=== PATIENT | male | born 1950 | race Caucasian/White ===

== ENCOUNTER 2022-04-27 18:42 | Inpatient (IN) ==
[2022-04-27 19:33] LABS: Basophils % 0.4 %; Eosinophils # 0.3 K/mcL (0.0-0.6); Eosinophils % 2.6 %; Hematocrit 45.9 % (37.5-50.1); Hemoglobin 15.3 g/dL (12.9-16.9); Immature Granulocytes % 0.3 % (0-4); Lymphocytes # 2.9 K/mcL (0.6-4.6); Lymphocytes % 28.6 %; Mean Corpuscular HGB Conc 33.3 g/dL (31.6-35.5); Mean Corpuscular Hemoglobin 31.2 pg (28.0-33.3); Mean Corpuscular Volume 93.5 fL (83.0-100.0); Mean Platelet Volume 9.5 fL (9.4-12.4); Monocytes # 0.9 K/mcL (0.0-1.3); Monocytes % 8.7 %; Platelet Count 285 K/mcL (140-400); Red Blood Count 4.91 M/mcL (4.19-5.50); Red Cell Distribution Width 12.3 % (11.5-14.5); Segmented Neutrophils % 59.4 %
[2022-04-27] MEDS ORDERED: Aspirin 325 MG TABLET PO ONE (20:04)
[2022-04-27] MEDS ORDERED: Nitroglycerin 1 INCH/GM PACKET TP ONE (20:08)
[2022-04-27 20:18] LABS: Troponin I 0.13 ng/mL (< 0.04)
[2022-04-27] MEDS ORDERED: Ondansetron 4 MG/2 ML VIAL IVP PRN (21:07)
[2022-04-27] MEDS ORDERED: Naloxone 0.4 MG/ML INJ IVP PRN (21:07)
[2022-04-27] MEDS ORDERED: Melatonin 3 MG TABLET PO PRN (21:07)
[2022-04-27 21:10] LABS: Calcium 9.4 mg/dL (8.6-10.3); Potassium 4.4 mEq/L (3.5-5.1)
[2022-04-27] MEDS ORDERED: Perflutren Lipid Microsphere 1.3 ML in 0.9 % Sodium Chloride 8.7 ML IVP PRN (21:15)
[2022-04-27] MEDS ORDERED: Dextrose Gel 15 GM/37.5 ML TUBE PO PRN ×2 (21:15)
[2022-04-27] MEDS ORDERED: D5% in Water 1,000 ML IVC PRN (21:15)
[2022-04-27] MEDS ORDERED: *HR* Dextrose 50 % in Water (Syg) 50 ML SYRINGE IVP PRN (21:15)
[2022-04-27] MEDS ORDERED: Baclofen 10 MG TABLET PO ONE (21:16)
[2022-04-27] MEDS ORDERED: *HR* Heparin 5,000 UNIT/ML VIAL IVP PRN (21:20)
[2022-04-27] MEDS ORDERED: *HR* Heparin 5,000 UNIT/ML VIAL IVP ONE (21:20)
[2022-04-28] MEDS: Mirtazapine 15 MG TABLET PO SCH ×2 (00:11→21:29)
[2022-04-28] MEDS: Acetaminophen 325 MG TABLET PO PRN ×2 (00:12→05:42)
[2022-04-28] MEDS: Heparin 25,000UNIT/250ML 1/2NS 25,000 UNIT/250 ML IV.SOLN IVC SCH (01:00)
[2022-04-28 01:03] LABS: Basophils % 0.4 %; Eosinophils # 0.3 K/mcL (0.0-0.6); Eosinophils % 2.7 %; Hematocrit 42.1 % (37.5-50.1); Immature Granulocytes % 0.2 % (0-4); Lymphocytes # 3.4 K/mcL (0.6-4.6); Lymphocytes % 33.3 %; Mean Corpuscular HGB Conc 33.3 g/dL (31.6-35.5); Mean Corpuscular Hemoglobin 31.5 pg (28.0-33.3); Mean Corpuscular Volume 94.6 fL (83.0-100.0); Mean Platelet Volume 9.4 fL (9.4-12.4); Monocytes # 1.1 K/mcL (0.0-1.3); Monocytes % 10.6 %; Neutrophils # 5.5 K/mcL (1.6-8.9); Platelet Count 242 K/mcL (140-400); Red Blood Count 4.45 M/mcL (4.19-5.50); Red Cell Distribution Width 12.3 % (11.5-14.5); Segmented Neutrophils % 52.8 %; White Blood Count 10.3 K/mcL (4.3-11.1)
[2022-04-28 01:11] LABS: Heparin anti-factor XA UFH < 0.04 IU/mL (0.30-0.70); Prothrombin Time 11.6 Seconds (9.4-12.1)
[2022-04-28 01:13] LABS: Activated Partial Thrombo Time 31.8 Seconds (26.0-36.0)
[2022-04-28 01:23] LABS: Albumin 3.7 g/dL (3.5-5.7); Albumin/Globulin Ratio 1.3 (1.1-2.2); Bilirubin,Total 0.3 mg/dL (0.3-1.0); Globulin 2.9 g/dL (2.4-3.5); Phosphorous 3.7 mg/dL (2.7-4.5); Potassium 3.7 mEq/L (3.5-5.1); Total Protein 6.6 g/dL (6.4-8.9)
[2022-04-28 01:39] LABS: Thyroid Stimulating Hormone 4.285 mcIU/mL (0.340-5.600)
[2022-04-28 01:44] LABS: Troponin I 0.18 ng/mL (< 0.04)
[2022-04-28 07:55] LABS: Estimated Average Glucose 120 mg/dl; Hemoglobin A1C 5.8 %
[2022-04-28] MEDS: Multivit/Ca/Min/Fe/FA 1 TAB TABLET PO SCH (08:01)
[2022-04-28] MEDS: Aspirin Enteric Coated 81 MG Tablet PO SCH (08:01)
[2022-04-28] MEDS: *HR* HYDROcodone/Acet 5/325 mg TABLET PO PRN ×2 (08:05→18:53)
[2022-04-28 08:47] LABS: Amphetamine Screen,Urine Negative ng/mL (Cutoff=1000); Barbiturate Screen,Urine Negative ng/mL (Cutoff=200); Benzodiazepines Screen,Urine Negative ng/mL (Cutoff=200); Cannabinoid Screen,Urine Negative ng/mL (Cutoff = 50); Cocaine Screen,Urine Negative ng/mL (Cutoff= 300); Opiate Screen,Urine Negative ng/mL (Cutoff=300); Phencyclidine Screen,Urine Negative ng/mL (Cutoff=25)
[2022-04-28] MEDS ORDERED: NON-FORMULARY MEDICATION 1 EACH EACH (Losartan Potassium [Cozaar] 100 MG Tablet) PO SCH (09:00)
[2022-04-28] MEDS: *HR* Heparin 5,000 UNIT/ML VIAL IVP PRN (12:19)
[2022-04-28] MEDS ORDERED: Heparin 1,000 UNITS/500 mL 500 ML ONE (12:41)
[2022-04-28] MEDS ORDERED: *HR* Heparin 10,000 UNIT/10 ML VIAL ONE (12:41)
[2022-04-28] MEDS ORDERED: Nitroglycerin 1,000 MCG/5 ML VIAL IV ONE (12:42)
[2022-04-28] MEDS ORDERED: Iopamidol - 370 200 ML INFUS..BTL ONE (12:42)
[2022-04-28] MEDS ORDERED: 0.9 % Sodium Chloride 2,000 ML ONE (12:42)
[2022-04-28] MEDS ORDERED: *HR* FentaNYL (PF) 100 MCG/2 ML VIAL ONE (14:05)
[2022-04-28] MEDS ORDERED: *HR* Midazolam HCl 2 MG/2 ML VIAL ONE ×2 (14:06→16:30)
[2022-04-28] MEDS ORDERED: Nitroglycerin Spray 4.9 GM BOTTLE ONE (16:30)
[2022-04-28] MEDS ORDERED: Nitroglycerin 1 INCH/GM PACKET TP ONE (16:35)
[2022-04-28] MEDS: Baclofen 10 MG TABLET PO PRN (21:29)
[2022-04-28] MEDS: carvediloL 6.25 MG TABLET PO SCH (21:39)
[2022-04-28] MEDS ORDERED: carvediloL 6.25 MG TABLET PO SCH (23:11)
[2022-04-29] MEDS: *HR* Heparin 5,000 UNIT/ML VIAL IVP PRN ×2 (02:14→16:38)
[2022-04-29] MEDS: Heparin 25,000UNIT/250ML 1/2NS 25,000 UNIT/250 ML IV.SOLN IVC SCH ×2 (02:19→20:02)
[2022-04-29] MEDS: Multivit/Ca/Min/Fe/FA 1 TAB TABLET PO SCH (08:46)
[2022-04-29] MEDS: Aspirin Enteric Coated 81 MG Tablet PO SCH (08:46)
[2022-04-29] MEDS: carvediloL 6.25 MG TABLET PO SCH ×2 (08:47→16:19)
[2022-04-29 11:21] LABS: Albumin 3.9 g/dL (3.5-5.7); Calcium 9.3 mg/dL (8.6-10.3); Phosphorous 2.6 mg/dL (2.7-4.5); Potassium 4.4 mEq/L (3.5-5.1)
[2022-04-29 11:22] LABS: Complement C3 128 mg/dL (87-200)
[2022-04-29] MEDS: Sennosides/Docusate Sodium TABLET PO SCH ×2 (13:15→19:59)
[2022-04-29] MEDS ORDERED: *HR* Ticagrelor 90 MG TABLET PO ONE (13:26)
[2022-04-29 17:00] LABS: Bilirubin,Urine Negative (Negative); Blood,Urine Negative (Negative); Clarity,Urine Clear (Clear); Color,Urine Light-Yellow (Yellow); Glucose,Urine (UA) Normal (Normal); Ketones,Urine Negative (Negative); Leukocyte Esterase,Urine Negative (Negative); Nitrite,Urine Negative (Negative); Protein,Urine Negative (Neg-Trace); Urobilinogen,Urine Normal (Normal)
[2022-04-29] MEDS: *HR* Ticagrelor 90 MG TABLET PO SCH (19:58)
[2022-04-29] MEDS: Baclofen 10 MG TABLET PO PRN (19:59)
[2022-04-29] MEDS: Mirtazapine 15 MG TABLET PO SCH (19:59)
[2022-04-30 03:22] LABS: Calcium 9.2 mg/dL (8.6-10.3); Potassium 3.9 mEq/L (3.5-5.1)
[2022-04-30] MEDS: carvediloL 6.25 MG TABLET PO SCH ×2 (08:48→10:55)
[2022-04-30] MEDS: Sennosides/Docusate Sodium TABLET PO SCH (08:48)
[2022-04-30] MEDS: *HR* Ticagrelor 90 MG TABLET PO SCH (08:48)
[2022-04-30] MEDS: Multivit/Ca/Min/Fe/FA 1 TAB TABLET PO SCH (08:48)
[2022-04-30] MEDS: Aspirin Enteric Coated 81 MG Tablet PO SCH (08:48)
[2022-04-30] MEDS: Heparin 25,000UNIT/250ML 1/2NS 25,000 UNIT/250 ML IV.SOLN IVC SCH (11:38)
[2022-04-30 12:17] VITALS: BP 141/81; PULSE 74; TEMP 98.3; O2SAT 95
[2022-04-30 14:38] LABS: Adenovirus Not Detected (Not Detect); Bordetella Pertussis Not Detected (Not Detect); Chlamydophila pneumoniae Not Detected (Not Detect); Coronavirus 229E Not Detected (Not Detect); Coronavirus HKU1 Not Detected (Not Detect); Coronavirus NL63 Not Detected (Not Detect); Coronavirus OC43 Not Detected (Not Detect); Human Metapneumovirus Not Detected (Not Detect); Human Rhinovirus/Enterovirus Not Detected (Not Detect); Influenza A Subtype 2009 H1 Not Detected (Not Detect); Influenza B Not Detected (Not Detect); Mycoplasma pneumoniae Not Detected (Not Detect); Parainfluenza Virus 1 Not Detected (Not Detect); Parainfluenza Virus 2 Not Detected (Not Detect); Parainfluenza Virus 3 Not Detected (Not Detect); Parainfluenza Virus 4 Not Detected (Not Detect); Respiratory Syncytial Virus Not Detected (Not Detect); SARS-CoV-2 Not Detected (Not Detect)
== END 2022-04-30 15:50 | disposition short-term general hospital (02) | DRG 282 ==
LOC: EMEROOARM 18:42 → 2ANU 18:42 → SUATTDRO 04-28 18:04
PROVIDERS: ADMIT Internal Medicine; ATTEND Internal Medicine